=== PATIENT | female | born 1975 | race Caucasian/White ===

== ENCOUNTER 2022-08-22 09:07 | Emergency (ER) | payer OTHER, SELFPAY ==
[2022-08-22 09:08] VITALS: BP 127/72; PULSE 52; RESP 17; TEMP 36.1; O2SAT 100; BMI 35.4
--- NOTE | 2022-08-22 09:20 | US_ITS ---
STUDY: ABDOMINAL ULTRASOUND - RIGHT UPPER QUADRANT REASON FOR VISIT: Female, 46 years old RUQ pain TECHNIQUE: Ultrasound evaluation of the right upper quadrant was performed with real-time and static salas-scale imaging. TECHNICAL QUALITY: Adequate. COMPARISON: None. FINDINGS: Liver: The liver measures 17.4 cm. There is normal echogenicity of the liver. The bile ducts are within normal limits. There is hepatic color flow. The direction of portal flow is hepatopetal. There is no demonstrated mass lesion. Gallbladder: Normal distended gallbladder. The gallbladder wall measures 2.5 mm. There is a negative sonographic Fofana''s sign. There is no pericholecystic fluid. There is a solitary echogenic gallstone within the gallbladder. There is a 6 mm x 5 mm gallbladder polyp. Common Bile Duct (C.B.D.): The common bile duct measures 6.6 mm. Pancreas: Normal size of the head, body and tail of the pancreas. There is normal echogenicity of the pancreas. There is no demonstrated pancreatic mass or cyst. Right Kidney: Normal size of the right kidney. The right kidney measures 10.2 cm x 5.1 cm x 5.1 cm. Normal renal cortex. The right cortex measures 1.4 cm. There is no demonstrated renal mass or cyst. There is no right hydronephrosis. US/Gallbladder IMPRESSION: Solitary gallstone. Small gallbladder polyp. Electronically Signed: Lucien Quintanilla MD at 11:42 EST ,
--- NOTE | 2022-08-22 09:29 | EX.ED.DYSGE1 ---
HPI History of Present Illness Chief Complaint: Abd Pain Informant: patient Onset/Context/Timing Onset: Today Narrative Narrative: Patient present secondary to right upper quadrant abdominal pain. She states last evening after dinner she noted some diarrhea with mild abdominal cramping. Around 4 AM this morning she developed diffuse abdominal cramping that is now localized to the right upper quadrant. She has nausea but no vomiting. No fever or chills. [facility] Medical History ADHD (attention deficit hyperactivity disorder) Home Medications lisdexamfetamine 40 mg capsule (Vyvanse) 40 mg PO DAILY 08/22/22 [History Last Taken 08/20/22] Allergy/AdvReac Type Severity Reaction Status Date / Time No Known Allergies Allergy Verified 08/22/22 09:08 Surgical History History of breast biopsy History of tonsillectomy Social History Smoking Status: Never smoker ROS ROS ED Constitutional Constitutional ED: Denies chills or fever(s) Eyes Eyes: Denies change in vision or discharge from eye(s) ENT ENT ED: Denies discharge from eye(s), rhinorrhea or sore throat Cardiovascular Cardiovascular: Denies chest pain or palpitations Respiratory/Chest Respiratory/Chest: Denies cough or dyspnea Gastrointestinal Gastrointestinal: Reports abdominal pain, diarrhea and nausea; Denies vomiting Genitourinary Genitourinary ED: Denies dysuria Musculoskeletal Musculoskeletal: Denies back pain or extremity pain Integumentary Denies Abrasions or rash Neurologic Neurologic: Denies headache(s) or weakness Psychiatric Psychiatric: Denies anxiety or depression Allergic/Immunologic Allergic/Immunologic ED: Denies lip swelling or urticaria EXAM Physical Exam Const Vital Signs: 08/22/22 09:08 08/22/22 11:54 Temperature 96.9 F L Temperature Source Temporal Pulse Rate 52 L 64 Respiratory Rate 17 16 Blood Pressure 127/72 H 132/79 H Blood Pressure Mean 90 96 Pulse Ox 100 98 Oxygen Delivery Method Room Air Room Air Positive well nourished and well developed General Appearance ED: well developed HEENT Reports normocephalic and head/scalp atraumatic Eyes PERRL and EOMs intact bilaterally Neck supple Chest Wall inspection of chest normal and palpation of chest normal Resp normal respiratory effort and clear to auscultation bilaterally Cardio regular rate and regular rhythm GI GI Narrative: Abdomen soft with moderate tenderness to palpation in the right upper quadrant. No guarding or rebound. Hypoactive bowel sounds are noted but present. Palpation: soft Extremity normal to inspection Neuro oriented x3 and no sensory deficits noted Sensorium / Orientation: alert Motor Exam: strength 5/5 throughout Psych mental status grossly normal Skin no rashes or lesions noted MDM MDM MDM Narrative Medical decision making narrative: Patient given morphine and Zofran for pain and nausea control. Labwork obtained to evaluate for leukocytosis, electrolyte abnormality. Right upper quadrant ultrasound ordered due to concern for cholecystitis. Lab Data Attestation: I reviewed the patient's lab results. Labs: Laboratory Results - last 24 hr 08/22/22 08/22/22 09:39 09:39 WBC 9.2 RBC 4.61 Hgb 13.4 Hct 40.5 MCV 87.9 MCH 29.1 MCHC 33.1 RDW Std Deviation 39.2 RDW Coeff of Estela 12.1 Plt Count 287 MPV 9.6 Immature Gran % (Auto) 0.300 Neut % (Auto) 69.7 Lymph % (Auto) 21.7 Morton % (Auto) 6.7 Eos % (Auto) 1.4 Baso % (Auto) 0.2 Absolute Neuts (auto) 6.4 Absolute Lymphs (auto) 2.00 Nucleated RBC % 0 Sodium 142 Potassium 3.5 Chloride 107 Carbon Dioxide 23.0 Anion Gap 12 BUN 16 Creatinine 1.06 H Estim Creat Clear Calc 57.27 Est GFR (MDRD) Af Amer 72 Est GFR (MDRD) Non-Af 59 L BUN/Creatinine Ratio 15.1 Glucose 140 H Calcium 9.4 Total Bilirubin 0.50 Direct Bilirubin 0.23 AST 32 ALT 35 Alkaline Phosphatase 65 Total Protein 7.2 Albumin 3.8 Globulin 3.4 Lipase 187 Radiography Diagnostic Testing: Clinical Impression(s) from Imaging Studies Gallbladder Ultrasound 08/22/22 09:20 IMPRESSION: Solitary gallstone. Small gallbladder polyp. Electronically Signed: Lucien Quintanilla MD at 11:42 EST , Treatment and Re-Evaluation Narrative: On repeat evaluation patient is resting much more comfortably. CBC reveals normal white count. No left shift. Chemistry studies unremarkable. LFTs are unremarkable. Gallbladder ultrasound reveals evidence of a solitary gallstone and a small gallbladder polyp. No sign of acute infection. I spoke with Dr. Kaur who reviewed the patient's images. He agrees the patient can be seen in the outpatient setting for follow-up. Patient is given return instructions. Discharge Plan Triage Chief Complaint: Abd Pain ED Provider: Janie Amato Dx/Rx/DC Orders Clinical Impression: Abdominal pain, Gallstone Instructions: ED Gallstones with Biliary Colic Prescriptions: No Action Vyvanse 40 mg capsule 40 mg PO DAILY Rx Instructions: WHEN WORKING Primary Care Provider: Anuj Hand Referrals: Wojciech Kaur MD [Med Staff - Active Staff] - 1-2 Weeks Anuj Hand DO [Primary Care Provider] - Disposition Disposition: Home, Self Care
[2022-08-22 09:44] LABS: Absolute Neutrophil Count 6.4 X10^3/uL (2.0-7.7); Basophil# 0.02 X10^3/uL; Basophil% 0.2 % (0-1); Eosinophil# 0.13 X10^3/uL; Eosinophils% 1.4 % (0-5); Hematocrit 40.5 % (37-47); Hemoglobin 13.4 g/dL (12.0-15.0); Lymphocyte % 21.7 % (19-41); Mean Corp Hgb Conc 33.1 g/dL (32-36); Mean Corpuscular Hgb 29.1 pg (27.0-32.0); Mean Corpuscular Volume 87.9 fL (81-99); Mean Platelet Vol. 9.6 fl (6.2-12.0); Monocyte# 0.62 X10^3/uL; Monocyte% 6.7 % (0-10); NRBC Flagged by Analyzer 0 % (0-5); Neutrophil # 6.43 X10^3/uL (2.7-7.7); Neutrophil % 69.7 % (47-70); Platelet Count 287 K/mm3 (150-450); RBC Distribution Width CV 12.1 % (11.6-14.6); RBC Distribution Width SD 39.2 fl (35.1-43.9); Red Blood Count 4.61 M/mm3 (4.2-5.4); White Blood Count 9.2 K/mm3 (4.4-11.0)
[2022-08-22] MEDS: 0.9% Normal Saline 1,000 ML 150 ML IV (09:57)
[2022-08-22] MEDS: Ondansetron 4 MG/2 ML Vial IV (09:57)
[2022-08-22] MEDS: Morphine 4 MG/ML Syringe IV (09:58)
--- NOTE | 2022-08-22 10:14 | NURSING ---
pain rt upper abd quad that goes through to rib area like a knife comes in waves. pt balled up in bed on side and doing pursed lip breathing. pain a 8/. nausea as well off and on. pain started last night and gradually became worse.
[2022-08-22 10:26] LABS: AST(SGOT) 32 U/L (15-37); Alanine Aminotransfer ALT/SGPT 35 U/L (13-56); Albumin, Serum 3.8 g/dL (3.2-5.0); Alkaline Phosphatase 65 U/L (45-117); Anion Gap 12 (5-15); BUN 16 mg/dL (7-18); BUN/Creat Ratio 15.1 RATIO (10-20); Bilirubin, Direct 0.23 mg/dL (0.00-0.30); Calcium,Total 9.4 mg/dL (8.5-10.1); Chloride 107 mmol/L (98-107); Creatinine, Serum 1.06 mg/dL (0.55-1.02); EST Glomerular Filtration Rate 59 mL/min (>60); Est Glom Filt Rate - Afr Amer 72 mL/min (>60); Estimated Creatinine Clearance 57.27 ml/min; Globulin 3.4 g/dL (2.2-4.2); Glucose 140 mg/dL (74-106); Lipase 187 U/L (73-393); Potassium 3.5 mmol/L (3.5-5.1); Protein, Total 7.2 g/dL (6.4-8.2); Sodium Level 142 mmol/L (136-145)
[2022-08-22 11:54] VITALS: BP 132/79; PULSE 64; RESP 16; O2SAT 98
[2022-08-22 13:34] VITALS: BP 147/73; PULSE 81; RESP 16; O2SAT 95
== END 2022-08-22 13:36 | disposition home or self-care (01) ==
PROVIDERS: Emergency Provider Emergency Medicine; PCP Student in an Organized Health Care Education/Training Program; Visit Provider Emergency Medicine
DX: K80.20 Calculus of gallbladder without cholecystitis without obstruction (principal); R10.11 Right upper quadrant pain; F90.9 Attention-deficit hyperactivity disorder, unspecified type; Z79.899 Other long term (current) drug therapy
CPT/HCPCS: 76705; 80048; 80076; 83690; 85025; 96374; 96375; 99283; J7030; A4216; J2405

== ENCOUNTER 2024-03-05 09:43 | Emergency (ER) | payer OTHER, SELFPAY ==
[2024-03-05 09:44] VITALS: BP 182/108; PULSE 63; RESP 19; TEMP 35.8; O2SAT 97; BMI 35.6
--- NOTE | 2024-03-05 10:21 | ED.VIS.BACK ---
HPI History of Present Illness Chief Complaint: Back Detail of Chief Complaint: Atraumatic low back pain radiating to her right knee. Informant: patient and spouse/S.O. Onset/Context/Timing Onset: Days Context: Gradual Onset Timing: Continuous Quality: Sharp Location: Buttock and Right Leg Current Severity: Moderate Maximum Severity: Moderate Worsened by: improves with Movement Relieved by: Remaining Still Associated Symptoms Associated Symptoms: Radiation to Right Leg; Negative for Numbness, Tingling, Radiation to Left Leg, Fever, Abdominal Pain, Dysuria, Unable to Ambulate, Unable to Transfer, Urinary Retention, Urinary Incontinence, Constipation or Fecal Incontinence Narrative Narrative: 48-year-old female no send back history. No prior back surgery. Was cleaning out her refrigerator there today which she was underneath. The next day starting on Thursday she tried and low back pain rating down her right buttock to her knee. Denies any fall injury or trauma. No fever. No bowel or bladder incontinence. No numbness or weakness. Prior similar symptoms: Yes Recent Illness/Hospitalization: No PFSH PFSH Medical History ADHD (attention deficit hyperactivity disorder) Home Medications ?Medication ?Instructions ?Recorded ?Last Taken ?Type lisdexamfetamine 40 mg capsule 40 mg PO DAILY 08/22/22 08/20/22 History (Vyvanse) oxycodone-acetaminophen 5 mg-325 1 tab PO Q4H PRN pain 4 days #14 03/05/24 Unknown Rx mg tablet (Percocet) tabs prednisone 20 mg tablet 40 mg (2 x 20 mg) PO DAILY 5 days 03/05/24 Unknown Rx #10 tabs Allergy/AdvReac Type Severity Reaction Status Date / Time No Known Allergies Allergy Verified 03/05/24 09:46 Surgical History History of breast biopsy History of tonsillectomy Social History Smoking Status: Never smoker ROS ROS ED ROS Narrative Denies recent illness. Constitutional Constitutional ED: Denies fever(s) Eyes Eyes: Denies blurry vision ENT ENT ED: Denies ear pain Respiratory/Chest Respiratory/Chest: Denies dyspnea Gastrointestinal Gastrointestinal: Denies abdominal pain Genitourinary Genitourinary ED: Denies dysuria or hematuria Musculoskeletal Musculoskeletal: Reports back pain; Denies arthralgias, myalgias or neck pain Integumentary Denies abscess or Abrasions Neurologic Neurologic: Denies headache(s) Psychiatric Psychiatric: Denies anxiety Endocrine Endocrinology: Denies cold intolerance Hematologic/Lymphatic Hematologic/Lymphatic: Denies easy bleeding Allergic/Immunologic Allergic/Immunologic ED: Denies mouth swelling or tongue swelling EXAM Physical Exam Narrative Exam Narrative: Well-appearing 40-year-old female. Vital signs stable afebrile. H EENT exam unremarkable. Neck nontender. Lungs clear. Heart regular rhythm rate about 60 no murmur. Chest wall ribs nontender. Abdomen soft nontender. Moving all 4 extremities. Neurovascularly intact. 5 out of 5 paper reeler strength. Dorsi plantarflexion intact. Positive straight leg raise on the right negative on the left. No cauda equina. No saddle anesthesia. Normal range of motion to her right hip and right knee normal in appearance. No redness, warmth or swelling. Back she has no spine tenderness she does have some right SI tenderness. Left is unremarkable. There is no signs of trauma redness or swelling. She is awake and alert. Has normal focal motor strength and sensation. Const Vital Signs: 03/05/24 09:44 Temperature 96.5 F L Temperature Source Temporal Pulse Rate 63 Respiratory Rate 19 H Blood Pressure 182/108 H Blood Pressure Mean 132 Pulse Ox 97 Oxygen Delivery Method Room Air Positive well nourished and well developed; Negative for cachectic, contractures or unkempt General Appearance ED: well developed and NAD; Negative for unkempt, cachectic, contractures or pallor Nutritional Appearance: Negative for cachectic HEENT Reports moist mucous membranes Negative for trauma or tenderness Eyes PERRL and EOMs intact bilaterally General Eye ED: Negative for pale conjunctiva, scleral icterus or other Neck no lymphadenopathy, supple and no JVD General: Negative for tenderness Thyroid: Negative for other Resp normal respiratory effort and clear to auscultation bilaterally Effort and Inspection: Negative for pain with movement Auscultation: Negative for rales, rhonchi, wheezes or diminished lung sounds Cardio regular rate, regular rhythm, S1 normal heart sound, S2 normal heart sound and no murmurs Palpation: Negative for palpable S3 Rate: Negative for bradycardia or tachycardic Rhythm: Negative for abnormal rhythm Bruits: Negative for other GI normal to inspection, nondistended, normoactive bowel sounds, soft to palpation, non-tender, non-distended and no masses Inspection: Negative for abdominal distention Palpation: Negative for tender, guarding or rebound tenderness present Back/Spine normal to inspection and no thoracic nor lumbar tenderness Back/Spine Narrative: Tenderness right SI joint. No redness, warmth or signs of trauma. No spine tenderness. Cervical Spine: Negative for cervical spine tenderness Thoracic Spine / Upper Back: Negative for paraspinal muscle tenderness Extremity normal to inspection and no clubbing, cyanosis or edema General Extremety ED: Negative for edema or tenderness General Extremity: Negative for edema Neuro oriented x3 and no sensory deficits noted Sensorium / Orientation: alert; Negative for confused, lethargic or stuporous Motor Exam: strength 5/5 throughout Psych mental status grossly normal Appearance: Negative for unkempt Mood & Affect: Negative for depressed, sad or tearful Skin no rashes or lesions noted and no wounds General Skin Exam: Negative for jaundice or pallor Lesions: No lesion noted Rashes: No rashes noted Trauma: Negative for abrasion or puncture Wounds: Negative for wounds noted MDM MDM MDM Narrative Medical decision making narrative: 40-year-old female right side sciatica. She is on prednisone which she is only on her third day. Should be continued on it 40 mg a day for a total of 10 days. Percocet for pain. She will be given an IM injection here morphine for pain. Discharge Plan Triage Chief Complaint: Back ED Provider: Regino Bryant Dx/Rx/DC Orders Clinical Impression: Sciatica Instructions: ED Sciatica Prescriptions: New prednisone 20 mg tablet 40 mg PO DAILY 5 Days Qty: 10 0RF oxycodone-acetaminophen [Percocet] 5-325 mg tablet 1 tab PO Q4H PRN (Reason: pain) 4 Days Qty: 14 0RF No Action Vyvanse 40 mg capsule 40 mg PO DAILY Rx Instructions: WHEN WORKING Primary Care Provider: Anuj Hadn Referrals: Anuj Hand DO [Primary Care Provider] - 1 Week if not improving Activity Restrictions/Additional Instructions: Prednisone 40 mg a day for 10 days total.'s 7 more days. I will send an additional prescription to your pharmacy. No need to taper. Percocet as needed for pain. No driving while using. Plenty of fluids and fiber to prevent constipation. Follow-up with your doctor if not improving. Print Language: Citizen Of [place] Disposition Disposition: Home, Self Care
[2024-03-05 10:49] VITALS: BP 177/102; PULSE 98; RESP 18; TEMP 36.2; O2SAT 100
== END 2024-03-05 10:50 | disposition home or self-care (01) ==
LOC: ED 10:21
PROVIDERS: Emergency Provider Emergency Medicine; PCP Student in an Organized Health Care Education/Training Program; Visit Provider Emergency Medicine
DX: M54.31 Sciatica, right side (principal); F90.9 Attention-deficit hyperactivity disorder, unspecified type; Z79.899 Other long term (current) drug therapy; X58.XXXA Exposure to other specified factors, initial encounter; Y93.89 Activity, other specified
CPT/HCPCS: 96372; 99282